=== PATIENT | male | born 1990 | race Caucasian/White ===

== ENCOUNTER 2020-01-02 08:06 | Emergency (ER) | payer BC, SELFPAY ==
--- NOTE | 2020-01-02 08:16 | ED.EYEPROB ---
HPI - Eye Problem General Chief complaint: Eye Problems Stated complaint: right eye fb Time Seen by Provider: 01/02/20 08:16 Source: patient and RN notes reviewed History of Present Illness HPI Narrative: Patient is a 29-year-old male that presents the urgent care with complaints of right eye irritation and possible foreign body. Patient states is very painful and sensitive to light. States that he was cleaning house and throwing things into a dumpster all day yesterday but did not notice the pain or irritation until last night. Patient has not put anything in the eye with the exception of Visine. Denies of known foreign body or trauma. No other acute complaints. Denies of any vision loss or change. Patient read the plan of care. Related Data Home Medications Medication Instructions Recorded Confirmed tramadol 50 mg PO Q6H PRN 01/02/20 01/02/20 Allergies Allergy/AdvReac Type Severity Reaction Status Date / Time No Known Allergies Allergy Verified 01/02/20 08:42 Review of Systems Review of Systems: Narrative: CONSTITUTIONAL: Denies fever, chills, or sweats. EYES: Reports of redness, drainage, irritation, pain to the right eye ENT: Denies rhinorrhea, congestion, sore throat, or otalgia. CARDIOVASCULAR: Denies chest pain, palpitations, or edema. RESPIRATORY: Denies cough or dyspnea. GASTROINTESTINAL: Denies abdominal pain, nausea, vomiting, or diarrhea. GENITOURINARY: Denies dysuria or hematuria. SKIN: Denies rash or itching. MUSCULOSKELETAL: Denies back pain, joint pain, or myalgia. NEUROLOGIC: Denies headache, numbness, or weakness. All other systems reviewed are negative, except as documented in HPI. PMFSH Comments At the time of my signature, I reviewed and agree with the nursing past medical, surgical, social, and family history. There is no relevant family history pertinent to the patient complaint. Exam Narrative: Exam Narrative: GENERAL: This is a well-nourished, well-developed patient, in no apparent distress. HEAD: normocephalic, atraumatic. EYES: PERRL. Moderate irritation, clear drainage, moderate conjunctivitis to right eye; left eye within normal limits EARS: External ears normal NOSE: External nose normal with no obvious nasal discharge THROAT: Mucous membranes moist NECK: Neck supple CARDIOVASCULAR: Regular rate and rhythm without murmurs, gallops, or rubs. RESPIRATORY: Clear to auscultation. Breath sounds equal bilaterally. No wheezes, rales, or rhonchi. SKIN: warm, intact with no suspicious lesions or rash, good texture and turgor. NEURO: awake, alert, and oriented to person, place and time. There were no obvious focal neurologic abnormalities. EXTREMITIES: No clubbing, cyanosis, or edema. Course Vital Signs Vital signs: Vital Signs Temperature 98.5 F 01/02/20 08:19 Pulse Rate 88 01/02/20 08:19 Respiratory Rate 20 01/02/20 08:19 Blood Pressure 131/75 01/02/20 08:19 Pulse Oximetry 99 01/02/20 08:19 Temperature 98.5 F 01/02/20 08:19 Pulse Rate 88 01/02/20 08:19 Respiratory Rate 20 01/02/20 08:19 Blood Pressure 131/75 01/02/20 08:19 Pulse Oximetry 99 01/02/20 08:19 Reviewed Procedures Other Procedure Procedure 1: Other Procedure: Right eye irrigated with eyewash. 2 drops of tetracaine used and fluorescein stain. Patient tolerated well. Possible small corneal abrasion noted to the lateral aspect at approximately 8:00 location. No notable foreign body. Eyelids inverted. Eyewash repeated after procedure. Patient tolerated well and stated that he was able to open the eye more freely without as much discomfort. No foreign body removed. MDM - Eye Problem MDM Narrative Medical decision making narrative: Advised the patient to use the eyewash of the right eye twice a day as directed. Use prescription eyedrops as directed. If you develop any change in vision, vision loss, increased eye pain?go directly to the emergency room or in emergency opht
[2020-01-02 08:19] VITALS: BP 131/75; PULSE 88; RESP 20; TEMP 36.9; O2SAT 99
== END 2020-01-02 08:50 | disposition home or self-care (01) ==
PROVIDERS: Emergency Provider Nurse Practitioner Family
DX: S05.01XA Injury of conjunctiva and corneal abrasion without foreign body, right eye, initial encounter (principal); X58.XXXA Exposure to other specified factors, initial encounter
CPT/HCPCS: 99213; A9270; G0463

== ENCOUNTER 2021-03-03 15:22 | Emergency (ER) | payer SELFPAY ==
--- NOTE | ~2021-03-03 | XR_ITS ---
XR forearm LT 2V 03/03/2021 15:50 Indication: Foreign body left forearm Procedure: 2 views left forearm Comparison: No prior studies for comparison. Findings: There is a foreign body in the soft tissues of the mid forearm along the radial aspect. Thi s foreign body measures 5 mm. No fracture or traumatic malalignment. There is normal mineralization. There is a small osteochondroma originating from the distal aspect of the humerus. Impression: 1: Foreign body of the soft tissues at the mid forearm level measuring 5 mm. Reviewed, dictated and finalized at location A. Impression: 1: Foreign body of the soft tissues at the mid forearm level measuring 5 mm.
[2021-03-03 15:29] VITALS: BP 117/70; RESP 18; TEMP 36.6; O2SAT 98
[2021-03-03] MEDS: TETANUS,DIPHTHERIA,AC PERTUSSIS ADULT (0.5 ML) BOOSTRIX IM (16:11)
--- NOTE | 2021-03-03 16:47 | ED.SKABFB ---
HPI - Skin/Abscess/Foreign Bdy General Chief complaint: Skin/Abscess/Foreign Body Stated complaint: fb in left forearm Time Seen by Provider: 03/03/21 15:47 Source: patient and RN notes reviewed Mode of arrival: ambulatory Limitations: no limitations History of Present Illness HPI narrative: Patient presents today complaining of a foreign body to his left forearm. 2 days ago, he was hammering at home when his hammer hit another hammer, shearing a piece of metal off of one of the hammers, lacerating and embedding into his forearm. States that this wound has festered and become very painful and swollen. He is not up-to-date on his tetanus vaccine. Currently rates his pain 04/18 describes the pain as throbbing. He has been taking ibuprofen without relief. MD complaint: foreign body Related Data Home Medications Medication Instructions Recorded Confirmed ibuprofen 800 mg PO Q8H 03/03/21 03/03/21 Allergies Allergy/AdvReac Type Severity Reaction Status Date / Time No Known Allergies Allergy Verified 03/03/21 15:37 Review of Systems Review of Systems: Narrative: CONSTITUTIONAL: Denies body aches, fever, chills, or sweats. EYES: Denies visual changes, redness, or discharge. ENT: Denies rhinorrhea, congestion, sore throat, or otalgia. CARDIOVASCULAR: Denies chest pain, palpitations, or edema. RESPIRATORY: Denies cough or dyspnea. GASTROINTESTINAL: Denies abdominal pain, nausea, vomiting, or diarrhea. GENITOURINARY: Denies dysuria or hematuria. SKIN: Denies rash, itching. + Embedded foreign body in left forearm MUSCULOSKELETAL: Denies back pain, joint pain, or myalgia. NEUROLOGIC: Denies headache, numbness, tingling, or weakness. PSYCH: Denies depression or anxiety. PMFSH Comments At time of signature, I have reviewed and agree with nursing past medical, surgical, social and family history unless otherwise noted. Please see nursing chart for further information. There is no relevant family history pertinent to the presenting complaint Exam Narrative: Exam Narrative: GENERAL: Well-appearing, well-nourished, and in no acute distress. HEAD: Normocephalic, atraumatic. EYES: EOMI. No redness or drainage. Conjunctivae normal. ENT: Mucous membranes pink and moist. NECK: Normal AROM. CHEST: No respiratory distress. EXTREMITIES: Normal range of motion. No edema. SKIN: Warm, dry, no rash. Capillary refill normal. Normal skin turgor. 0.5 cm healing scab to the mid left radius. Just proximal to this, there is an approximately 2 to 2.5 cm round area of firmness surrounded in a 4 cm round area of erythema. This area is tender to palpation. Distal sensation intact. Capillary refill normal. Radial pulse normal. Full range of motion of the elbow and wrist. NEURO: No focal deficits. Alert and oriented x3. Gait steady. PSYCH: Normal affect. No signs of depression or anxiety. Course Course Emergency Course: Attempt to remove the foreign body was made. Small incision was made just proximal to the scab/insertion site. Removal of the foreign body was unsuccessful. Area loosely closed with Steri-Strips. Patient will be placed on antibiotics to help resolve infection. Vital Signs Vital signs: Vital Signs Temperature 97.9 F 03/03/21 15:29 Respiratory Rate 18 03/03/21 15:29 Blood Pressure 117/70 03/03/21 15:29 Pulse Oximetry 98 03/03/21 15:29 Temperature 97.9 F 03/03/21 15:29 Respiratory Rate 18 03/03/21 15:29 Blood Pressure 117/70 03/03/21 15:29 Pulse Oximetry 98 03/03/21 15:29 Procedures Foreign Body Removal Foreign Body #1: Foreign Body Removal Date: 03/03/21 Foreign Body Removal Time: 16:47 Time Out Performed: yes Site: left and upper extremity Description of foreign body: other (Metal shard) Sedation/Analgesia: none Technique: incision made to facilitate removal (1cm) Neurovascular: normal distal pulse, normal capillary fill, distal l
== END 2021-03-03 16:55 | disposition home or self-care (01) ==
PROVIDERS: Emergency Provider Nurse Practitioner
DX: L03.114 Cellulitis of left upper limb (principal); S50.852A Superficial foreign body of left forearm, initial encounter; W45.8XXA Other foreign body or object entering through skin, initial encounter; Z23 Encounter for immunization
CPT/HCPCS: 10120; 73090; 90471; 90715; 99213; G0463

== ENCOUNTER 2021-08-27 10:10 | Outpatient (CLI) | payer OTHER, SELFPAY ==
--- NOTE | ~2021-08-27 | XR_ITS ---
XR lumbar spine 2-3V DATE: 08/27/2021 10:46 INDICATION: Low back pain TECHNIQUE: AP, lateral, coned lateral lumbosacral views COMPARISON: None FINDINGS: Normal alignment lumbar spine. No fracture or bone destruction or spondylolisthesis. The in cluded lower thoracic and lumbar pedicles are intact. Lumbar and lumbosacral interspaces are well pre served. The sacroiliac joints are normal. IMPRESSION: Normal lumbar spine examination Reviewed, dictated and finalized at location A. [employer] REPRESENTATIVE
--- NOTE | ~2021-08-27 | XR_ITS ---
XR_CERV2-3V_CR DATE: 08/27/2021 10:46 INDICATION: Neck pain, arm numbness TECHNIQUE: AP, lateral, swimmer views COMPARISON: None FINDINGS: There is straightening of the cervical spine which may be due to muscle spasm. C1 and C2 are normally aligned and the odontoid process appears intact. No fracture or dislocation or locked facet or prevertebral soft tissue swelling. Cervical interspaces are well preserved. IMPRESSION: Straightening Reviewed, dictated and finalized at Location [facility]. Reviewed, dictated and finalized at location A. OR COMMISSARY AGENT IMPRESSION: Straightening
[2021-08-27 18:22] LABS: Hematocrit 49.8 % (42.0-52.0); Mean Corpuscular HGB Conc 34.1 g/dl (32-36); Mean Corpuscular Hemoglobin 29.7 pg (26-34); Mean Corpuscular Volume 86.9 fl (80-100); Mean Platelet Volume 10.5 fl (7.4-10.4); Platelet Count Result 283 k/mm3 (150-375); Red Blood Count 5.73 M/mm3 (4.6-6.20); Red Cell Distribution Width 12.9 % (11.5-14.5); White Blood Count 7.8 K/mm3 (4.5-10.0)
[2021-08-27 19:50] LABS: Alanine Aminotransferase 33 U/L (4-50); Albumin Level 4.7 g/dL (3.5-5.1); Alkaline Phosphatase 76 U/L (38-126); Anion Gap 10 mmol/L (8-16); Aspartate Amino Transferase 33 U/L (17-59); Bilirubin,Total 1.1 mg/dL (0.2-1.3); Blood Urea Nitrogen 14 mg/dL (9-20); Calcium 9.8 mg/dL (8.4-10.2); Carbon Dioxide 25 mmol/L (22-30); Chloride 105 mmol/L (98-107); Cholesterol 199 mg/dL (0-200); Estimated Glomerular Filt Rate > 60; Glucose 104 mg/dL (65-110); HDL Direct 54 mg/dL; Potassium 4.8 mmol/L (3.4-5.0); Sodium 140 mmol/L (137-145); Triglycerides 51 mg/dL (<150)
[2021-08-27 20:01] LABS: LDL Cholesterol Direct 131 mg/dL
== END 2021-08-27 10:11 | disposition home or self-care (01) ==
LOC: ANHBWCLAB 10:12
PROVIDERS: PCP Family Medicine; Visit Provider Family Medicine
DX: Z82.49 Family history of ischemic heart disease and other diseases of the circulatory system (principal); Z00.00 Encounter for general adult medical examination without abnormal findings; M54.50 Low back pain, unspecified; M54.2 Cervicalgia
CPT/HCPCS: 36415; 72040; 72100; 80053; 80061; 85027

== ENCOUNTER 2021-12-04 15:20 | Emergency (ER) | payer OTHER, SELFPAY ==
[2021-12-04 15:26] VITALS: BP 127/96; PULSE 121; RESP 20; TEMP 36.8; O2SAT 98
--- NOTE | 2021-12-04 15:40 | ED.ANIMALBIT ---
HPI - Animal Bite General Chief Complaint: Animal Bite Stated Complaint: Cat Bite Source: patient Mode of arrival: ambulatory Limitations: no limitations History of Present Illness HPI narrative: 31-year-old male presented for complaint of feral cat bite to the left hand, onset today at 0830. He had finished working before he could be evaluated. This is a stray cat, unknown vaccination history. His tetanus is up-to-date 02/2021. Endorses difficulty moving the index finger with associated tingling sensation and pain 9 out of 10. Has not taken anything for pain. Also endorses the right index and middle finger were scratched by the cat's nails. States the cat is in custody and will be monitored x10 days. Related Data Allergies Allergy/AdvReac Type Severity Reaction Status Date / Time No Known Allergies Allergy Verified 12/04/21 15:34 Review of Systems Review of Systems: CONSTITUTIONAL: Denies body aches, fever, chills, or sweats. EYES: Denies visual changes, redness, or discharge. ENT: Denies rhinorrhea, congestion CARDIOVASCULAR: Denies chest pain, palpitations, or edema. RESPIRATORY: Denies cough or dyspnea. GASTROINTESTINAL: Denies abdominal pain, nausea, vomiting, or diarrhea. GENITOURINARY: Denies dysuria or hematuria. SKIN: cat bite left hand and scratch to right hand MUSCULOSKELETAL: Denies back pain, joint pain, or myalgia. NEUROLOGIC: Denies headache, numbness, tingling, or weakness. PSYCH: Denies depression or anxiety. [facility] Social History Social History Smoking packs per day: 1 Smoking cigarettes per day: 20.0 Years smoked: 13 Smoking pack-years: 13.00 Smoking status: Current every day smoker Alcohol intake: current Substance use: current Substance use type: marijuana Comments At time of signature, I have reviewed and agree with nursing past medical, surgical, social and family history unless otherwise noted. Please see nursing chart for further information. There is no relevant family history pertinent to the presenting complaint Exam Narrative: GENERAL: Well-appearing, well-nourished, and in no acute distress. HEAD: Normocephalic, atraumatic. EYES: PERRLA, conjunctivae clear, and EOMI. ENT: Mucous membranes moist. Oropharynx without edema, erythema or lesions. NECK: Supple. No lymphadenopathy CHEST: Clear to auscultation. No respiratory distress. HEART: Regular rate and rhythm. SKIN: Warm, dry. left hand with laceration and puncture to dorsal surface between 1st and 2nd digits, no active drainage, moderate swelling; limited ROM to 2nd digit due to pain, but no tendon involvement, sensation intact cap refill <3 sec; right 2nd digit with one lac approx 3cm length no active drainage or swelling, right 3rd digit with 1.5cm lac and 1cm lac no active drainage, approximates NEURO: Alert and oriented x3. PSYCH: Normal mood and affect Course Course Emergency Course: Cat is in custody. Spoke with Dayna RN at health dept who will follow with pt. No rabies vaccine indicated at this time. Should the cat or have neurological changes in the next 10 days while under investigation, pt will need rabies vaccine. v/u Patient is aware of diagnosis, understands and agrees to treatment plan. Anticipatory guidance given. Patient agrees to follow-up as directed and is aware of reasons to seek care at the emergency department. Portions of this record may have been created with voice recognition software Level of Care: Express Care Visit Vital Signs Vital signs: Vital Signs Temperature 98.2 F 12/04/21 15:26 Pulse Rate 121 H 12/04/21 15:26 Respiratory Rate 20 12/04/21 15:26 Blood Pressure 127/96 H 12/04/21 15:26 Pulse Oximetry 98 12/04/21 15:26 Temperature 98.2 F 12/04/21 15:26 Pulse Rate 121 H 12/04/21 15:26 Respiratory Rate 20 12/04/21 15:26 Blood Pressure 127/96 H 12/04/21 15:26 Pulse Oximetry 98 12/04/21 15:26 R
== END 2021-12-04 16:40 | disposition home or self-care (01) ==
PROVIDERS: Emergency Provider Nurse Practitioner Family; PCP Family Medicine
DX: S61.412A Laceration without foreign body of left hand, initial encounter (principal); S61.432A Puncture wound without foreign body of left hand, initial encounter; S61.210A Laceration without foreign body of right index finger without damage to nail, initial encounter; S61.212A Laceration without foreign body of right middle finger without damage to nail, initial encounter; W55.01XA Bitten by cat, initial encounter; F17.210 Nicotine dependence, cigarettes, uncomplicated
CPT/HCPCS: 99213; G0463

== ENCOUNTER 2022-12-07 14:53 | Outpatient (CLI) | payer OTHER, SELFPAY ==
[2022-12-07 18:42] LABS: Basophils Absolute Auto 0.1 K/mm3 (0.0-0.1); Basophils Percent Auto 0.6 % (0.2-1.2); Eosinophils Absolute Auto 0.3 K/mm3 (0-0.3); Hemoglobin 16.9 g/dL (14.0-18.0); Immature Granulocyte Absolute 0.03 K/mm3 (0.00-0.031); Immature Granulocyte Percent A 0.3 % (0-0.5); Lymphocytes Absolute Auto 2.31 K/mm3 (0.9-3.2); Lymphocytes Percent Auto 23.9 % (18.3-44.2); Mean Corpuscular HGB Conc 33.8 g/dl (32-36); Mean Corpuscular Hemoglobin 28.9 pg (26-34); Mean Corpuscular Volume 85.6 fl (80-100); Mean Platelet Volume 10.5 fl (7.4-10.4); Monocytes Absolute Auto 0.9 K/mm3 (0.1-0.6); Monocytes Percent Auto 9.3 % (2.6-8.5); Neutrophils Absolute Auto 6.1 K/mm3 (1.3-6.7); Neutrophils Percent Auto 62.9 % (45.5-73.1); Platelet Count Result 290 k/mm3 (150-375); Red Blood Count 5.84 M/mm3 (4.6-6.20); Red Cell Distribution Width 13.5 % (11.5-14.5); White Blood Count 9.7 K/mm3 (4.5-10.0)
[2022-12-07 18:58] LABS: Alanine Aminotransferase 32 U/L (6-50); Alkaline Phosphatase 63 U/L (38-126); Anion Gap 6 mmol/L (8-16); Aspartate Amino Transferase 49 U/L (17-59); Bilirubin,Total 0.6 mg/dL (0.2-1.3); Blood Urea Nitrogen 13 mg/dL (9-20); Calcium 9.6 mg/dL (8.4-10.2); Carbon Dioxide 29 mmol/L (22-30); Chloride 102 mmol/L (98-107); Cholesterol 201 mg/dL (0-200); Estimated Glomerular Filt Rate > 60; Glucose 79 mg/dL (65-110); HDL Direct 44 mg/dL; Sodium 137 mmol/L (137-145); Triglycerides 172 mg/dL (<150)
[2022-12-07 19:10] LABS: LDL Cholesterol Direct 122 mg/dL
[2022-12-13 07:51] LABS: Amphetamines Negative; Barbiturates Negative; Benzodiazepines Negative
[2022-12-13 07:52] LABS: Cocaine Metabolite Negative; Marijuana Metabolite Positive
[2022-12-13 07:53] LABS: Opiates Negative
[2022-12-13 07:54] LABS: Oxidant Negative; pH 7.5
== END 2022-12-07 14:54 | disposition home or self-care (01) ==
LOC: ANHBWCLAB 14:54
PROVIDERS: PCP Family Medicine; Visit Provider Family Medicine
DX: M54.50 Low back pain, unspecified (principal); Z00.00 Encounter for general adult medical examination without abnormal findings
CPT/HCPCS: 36415; 80053; 80061; 80299; 85025

== ENCOUNTER 2023-08-05 09:43 | Outpatient (CLI) | payer OTHER, SELFPAY ==
[2023-08-09 17:19] LABS: Amphetamines NEGATIVE ng/mL (<500); Barbiturates NEGATIVE ng/mL (<300); Benzodiazepines NEGATIVE ng/mL (<100); Cocaine Metabolite NEGATIVE ng/mL (<100); Marijuana Metabolite 1200 ng/mL (<5); Methadone Metabolite NEGATIVE ng/mL (<100); Opiates NEGATIVE ng/mL (<100); Oxidant NEGATIVE mcg/mL (<200); pH 7.6 (4.5-9.0)
== END 2023-08-05 09:44 | disposition home or self-care (01) ==
LOC: ANHBWCLAB 09:44
PROVIDERS: PCP Nurse Practitioner Adult Health; Visit Provider Nurse Practitioner Adult Health
DX: Z51.81 Encounter for therapeutic drug level monitoring (principal); Z79.899 Other long term (current) drug therapy
CPT/HCPCS: 80299

== ENCOUNTER 2024-04-24 14:25 | Outpatient (CLI) | payer OTHER, SELFPAY ==
--- NOTE | ~2024-04-24 | XR_ITS ---
XR abdomen/kub 1V Ordering provider: Milana Meade APRN History: . R19.7 - Diarrhea, unspecified . Comparison: None. FINDINGS: BOWEL: Nonobstructive bowel gas pattern. ORGANOMEGALY: None. SIGNIFICANT PATHOLOGIC CALCIFICATIONS: None. OTHER: No free air is seen under the diaphragm. IMPRESSION: NO ACUTE ABDOMINAL FINDINGS. Reviewed, dictated and finalized at location A.
[2024-04-24 18:09] LABS: Hematocrit 49.7 % (42.0-52.0); Hemoglobin 16.8 g/dL (14.0-18.0); Mean Corpuscular HGB Conc 33.8 g/dl (32-36); Mean Corpuscular Hemoglobin 28.8 pg (26-34); Mean Corpuscular Volume 85.1 fl (80-100); Platelet Count Result 261 k/mm3 (150-375); Red Blood Count 5.84 M/mm3 (4.6-6.20); Red Cell Distribution Width 13.3 % (11.5-14.5); White Blood Count 7.5 K/mm3 (4.5-10.0)
[2024-04-24 18:25] LABS: Alanine Aminotransferase 21 U/L (6-50); Albumin Level 4.8 g/dL (3.5-5.1); Alkaline Phosphatase 84 U/L (38-126); Anion Gap 10 mmol/L (4-12); Aspartate Amino Transferase 63 U/L (17-59); Bilirubin,Total 1.1 mg/dL (0.2-1.3); Blood Urea Nitrogen 11 mg/dL (9-20); Calcium 9.4 mg/dL (8.4-10.2); Carbon Dioxide 24 mmol/L (22-30); Chloride 104 mmol/L (98-107); Estimated Glomerular Filt Rate > 60; Glucose 97 mg/dL (65-110); Potassium 4.2 mmol/L (3.4-5.0); Sodium 138 mmol/L (137-145)
== END 2024-04-24 14:26 | disposition home or self-care (01) ==
LOC: ANHBWCLAB 14:26
PROVIDERS: PCP Nurse Practitioner Adult Health; Visit Provider Nurse Practitioner Adult Health
DX: R19.7 Diarrhea, unspecified (principal); R10.9 Unspecified abdominal pain
CPT/HCPCS: 36415; 74018; 80053; 85027